=== PATIENT | female | born 1975 | race Caucasian/White ===

== ENCOUNTER 2017-03-08 00:16 | Inpatient (IN) | payer OTHER ==
[~2017-03-08] VITALS: Ht 152.4 cm; Wt 73.9 kg
[2017-03-08 00:17] VITALS: BP 119/70
[2017-03-08] MEDS: DEXT 5% /NACL 0.9% 1,000 ML IV SCH ×2 (01:00→04:43)
[2017-03-08] MEDS ORDERED: LIDOCAINE VISCOUS 2% 20 ML UDC PO ONE (01:30)
[2017-03-08] MEDS ORDERED: ALUMINUM HYD/MAG/SIMETHICONE 30 ML UDC PO ONE (01:30)
[2017-03-08] MEDS ORDERED: DICYCLOMINE HCL LIQUID 10 MG/5 ML UDC PO ONE (01:30)
[2017-03-08] MEDS ORDERED: NACL 0.9% 500 ML IV ONE (02:18)
[2017-03-08] MEDS ORDERED: ONDANSETRON 4 MG/2 ML VIAL IVP ONE (02:20)
[2017-03-08] MEDS ORDERED: KETOROLAC 30 MG/ML VIAL IVP ONE (02:20)
[2017-03-08 03:09] LABS: HEMATOCRIT 36.1 % (36-48); HEMOGLOBIN 11.5 g/dL (12.0-16.0); MEAN CORPUSCULAR HEMOGLOBIN 26 pg (27-31); MEAN CORPUSCULAR HGB CONC 32 g/dL (33-37); MEAN CORPUSCULAR VOLUME 80 fL (80-94); PLATELET COUNT (AUTO) 336 K/uL (140-450); RED BLOOD CELL COUNT(AUTO) 4.49 MIL/uL (4.20-5.40); RED CELL DISTRIBUTION WIDTH 15.6 % (11.6-13.7); WHITE BLOOD COUNT (AUTO) 10.3 K/uL (4.8-10.8)
[2017-03-08 03:15] LABS: LYMPHOCYTES % (MANUAL) 15 % (20-46); MONOCYTES % (MANUAL) 3 % (5-12)
[2017-03-08 03:17] LABS: ANION GAP 14.4 (8-16); CREATININE 0.7 mg/dL (0.6-1.3); POTASSIUM 3.4 mmol/L (3.5-5.1)
[2017-03-08 03:23] LABS: ALBUMIN 3.8 g/dL (3.4-5.0); TOTAL BILIRUBIN 1.2 mg/dL (0.0-1.0)
[2017-03-08] MEDS ORDERED: MORPHINE SULFATE 2 MG/ML SYR IVP ONE (03:35)
[2017-03-08] MEDS ORDERED: metroNIDAZOLE 500 MG/NS PREMIX 100 ML IV ONE (03:35)
[2017-03-08] MEDS ORDERED: MORPHINE SULFATE 4 MG/ML SYR IVP PRN (03:45)
[2017-03-08 04:25] VITALS: BP 133/73
[2017-03-08] MEDS ORDERED: PIPERACILLIN/TAZOBACTAM 3.375 GM VIAL IV ONE (04:34)
[2017-03-08] MEDS ORDERED: PIPERACILLIN/TAZOBACTAM 3.375 GM in DEXTROSE 5% 50 ML IV SCH (05:00)
[2017-03-08 08:00] VITALS: BP 112/78
[2017-03-08] MEDS ORDERED: POTASSIUM CHLORIDE 20% 40 MEQ/15 ML UDC PO SCH (09:12)
[2017-03-08 12:00] VITALS: BP 106/59
[2017-03-08] MEDS: PIPER/TAZO 3.375GM/D5W PREMIX 50 ML IV SCH ×2 (13:13→20:50)
[2017-03-09] VITALS: BP 105/67
[2017-03-09] MEDS ORDERED: INFLUENZA VIRUS VACCINE QUAD 0.5 ML SYR IMVAC SCH (04:00)
[2017-03-09] MEDS: PIPER/TAZO 3.375GM/D5W PREMIX 50 ML IV SCH ×3 (04:33→20:54)
[2017-03-09] MEDS: DEXT 5% /NACL 0.9% 1,000 ML IV SCH ×2 (06:25→18:03)
[2017-03-09 07:30] LABS: BASOPHILS # (AUTO) 0.1 K/uL (0.00-0.22); BASOPHILS % (AUTO) 1.7 % (0.0-2.0); EOSINOPHILS # (AUTO) 0.3 K/uL (0-0.4); EOSINOPHILS % (AUTO) 4.4 % (0.0-4.0); HEMATOCRIT 32.5 % (36-48); HEMOGLOBIN 10.5 g/dL (12.0-16.0); LYMPHOCYTES # (AUTO) 2.1 K/uL (2.5-16.5); LYMPHOCYTES % (AUTO) 27.7 % (20.5-51.1); MEAN CORPUSCULAR HEMOGLOBIN 26 pg (27-31); MEAN CORPUSCULAR HGB CONC 32 g/dL (33-37); MEAN CORPUSCULAR VOLUME 80 fL (80-94); MONOCYTES # (AUTO) 0.6 K/uL (0.8-1.0); MONOCYTES % (AUTO) 8.6 % (1.7-9.3); NEUTROPHILS # (AUTO) 4.4 K/uL (1.8-7.7); NEUTROPHILS % (AUTO) 57.6 % (42.2-75.2); PLATELET COUNT (AUTO) 288 K/uL (140-450); RED BLOOD CELL COUNT(AUTO) 4.08 MIL/uL (4.20-5.40); RED CELL DISTRIBUTION WIDTH 15.8 % (11.6-13.7); WHITE BLOOD COUNT (AUTO) 7.5 K/uL (4.8-10.8)
[2017-03-09 08:00] VITALS: BP 115/48
[2017-03-09 08:11] LABS: ANION GAP 13.2 (8-16); CARBON DIOXIDE 25.3 mmol/L (21-32); CREATININE 0.7 mg/dL (0.6-1.3); POTASSIUM 4.5 mmol/L (3.5-5.1)
[2017-03-09 08:16] LABS: MAGNESIUM 2.2 mg/dL (1.8-2.4); PHOSPHORUS 3.4 mg/dL (2.5-4.9); TOTAL BILIRUBIN 1.1 mg/dL (0.0-1.0)
[2017-03-09] MEDS: MORPHINE SULFATE 2 MG/ML SYR IVP PRN (11:36)
[2017-03-09] MEDS: ONDANSETRON 4 MG/2 ML VIAL IVP PRN ×2 (15:45→20:54)
[2017-03-09 16:00] VITALS: BP 106/64
[2017-03-09 20:00] VITALS: BP_SYST 107; BP_SYST 126; BP_DIAS 70; BP_DIAS 74
[2017-03-10] VITALS (12 sets, daily range): BP systolic 89–107; BP diastolic 55–71
[2017-03-10] MEDS ORDERED: INFLUENZA VIRUS VACCINE QUAD 0.5 ML SYR IMVAC PRN (04:00)
[2017-03-10] MEDS: PIPER/TAZO 3.375GM/D5W PREMIX 50 ML IV SCH ×3 (04:30→20:52)
[2017-03-10] MEDS ORDERED: HYDROmorphone PFS 2 MG/ML SYR ONE (08:46)
[2017-03-10] MEDS ORDERED: fentaNYL 0.05 MG/ML VIAL ONE (08:46)
[2017-03-10] MEDS ORDERED: BUPIVACAINE-MPF 0.25% 30 ML VIAL INJ ONE (08:53)
[2017-03-10] MEDS: DEXT 5% /NACL 0.9% 1,000 ML IV SCH ×2 (09:05→18:04)
[2017-03-10 09:10] LABS: BASOPHILS # (AUTO) 0.1 K/uL (0.00-0.22); BASOPHILS % (AUTO) 2.1 % (0.0-2.0); EOSINOPHILS # (AUTO) 0.3 K/uL (0-0.4); EOSINOPHILS % (AUTO) 3.9 % (0.0-4.0); HEMATOCRIT 33.9 % (36-48); HEMOGLOBIN 11.1 g/dL (12.0-16.0); LYMPHOCYTES # (AUTO) 1.8 K/uL (2.5-16.5); LYMPHOCYTES % (AUTO) 25.7 % (20.5-51.1); MEAN CORPUSCULAR HEMOGLOBIN 26 pg (27-31); MEAN CORPUSCULAR HGB CONC 33 g/dL (33-37); MEAN CORPUSCULAR VOLUME 79 fL (80-94); MONOCYTES # (AUTO) 0.6 K/uL (0.8-1.0); MONOCYTES % (AUTO) 8.9 % (1.7-9.3); NEUTROPHILS # (AUTO) 4.1 K/uL (1.8-7.7); NEUTROPHILS % (AUTO) 59.4 % (42.2-75.2); PLATELET COUNT (AUTO) 320 K/uL (140-450); RED CELL DISTRIBUTION WIDTH 15.4 % (11.6-13.7); WHITE BLOOD COUNT (AUTO) 6.9 K/uL (4.8-10.8)
[2017-03-10 09:52] LABS: ANION GAP 11.5 (8-16); CARBON DIOXIDE 27.5 mmol/L (21-32); CREATININE 0.7 mg/dL (0.6-1.3)
[2017-03-10] MEDS ORDERED: HYDROmorphone 1 MG/ML AMP IVP PRN (10:00)
[2017-03-10] MEDS ORDERED: ONDANSETRON 4 MG/2 ML VIAL IVP PRN (10:00)
[2017-03-10 10:01] LABS: ALBUMIN 3.2 g/dL (3.4-5.0); TOTAL BILIRUBIN 1.3 mg/dL (0.0-1.0)
[2017-03-10] MEDS: ONDANSETRON 4 MG/2 ML VIAL IVP PRN ×2 (17:03→21:04)
[2017-03-11] VITALS: BP 100/58
[2017-03-11] MEDS: PIPER/TAZO 3.375GM/D5W PREMIX 50 ML IV SCH ×2 (04:09→13:32)
[2017-03-11] MEDS: MORPHINE SULFATE 2 MG/ML SYR IVP PRN ×2 (04:13→08:27)
[2017-03-11 08:00] VITALS: BP 103/68
[2017-03-11] MEDS: DEXT 5% /NACL 0.9% 1,000 ML IV SCH (08:19)
[2017-03-11] MEDS: ONDANSETRON 4 MG/2 ML VIAL IVP PRN (08:27)
[2017-03-11 16:00] VITALS: BP 101/58
[2017-03-11 20:00] VITALS: BP 100/62
[2017-03-11] MEDS: ONDANSETRON 4 MG TAB PO PRN (20:41)
[2017-03-11] MEDS: HYDROcodone/APAP 5/325 MG 1 TAB TAB PO PRN (20:46)
[2017-03-12] VITALS: BP 99/66
[2017-03-12] MEDS ORDERED: ACET-2869 PO (01:49)
[2017-03-12] MEDS ORDERED: ONDA4TAB PO (01:50)
[2017-03-12 01:52] VITALS: BP 99/66
[2017-03-12] MEDS: HYDROcodone/APAP 5/325 MG 1 TAB TAB PO PRN ×2 (03:49→09:29)
[2017-03-12] MEDS: ONDANSETRON 4 MG TAB PO PRN ×2 (03:49→09:29)
[2017-03-12 07:22] LABS: BASOPHILS # (AUTO) 0.2 K/uL (0.00-0.22); BASOPHILS % (AUTO) 1.7 % (0.0-2.0); EOSINOPHILS # (AUTO) 0.8 K/uL (0-0.4); EOSINOPHILS % (AUTO) 8.4 % (0.0-4.0); HEMATOCRIT 31.4 % (36-48); HEMOGLOBIN 10.2 g/dL (12.0-16.0); MEAN CORPUSCULAR HEMOGLOBIN 26 pg (27-31); MEAN CORPUSCULAR HGB CONC 32 g/dL (33-37); MEAN CORPUSCULAR VOLUME 81 fL (80-94); MONOCYTES # (AUTO) 0.9 K/uL (0.8-1.0); NEUTROPHILS # (AUTO) 5.7 K/uL (1.8-7.7); NEUTROPHILS % (AUTO) 59.9 % (42.2-75.2); PLATELET COUNT (AUTO) 316 K/uL (140-450); RED BLOOD CELL COUNT(AUTO) 3.88 MIL/uL (4.20-5.40); RED CELL DISTRIBUTION WIDTH 15.6 % (11.6-13.7); WHITE BLOOD COUNT (AUTO) 9.6 K/uL (4.8-10.8)
[2017-03-12 07:47] LABS: ALBUMIN 2.8 g/dL (3.4-5.0); ANION GAP 12.4 (8-16); CARBON DIOXIDE 26.3 mmol/L (21-32); CREATININE 0.6 mg/dL (0.6-1.3); POTASSIUM 3.7 mmol/L (3.5-5.1); TOTAL BILIRUBIN 0.8 mg/dL (0.0-1.0)
[2017-03-12 08:00] VITALS: BP 102/65
== END 2017-03-12 11:05 | disposition home or self-care (01) | DRG 263 ==
LOC: MED 00:16 → MTU 03:44
PROVIDERS: ADMIT Hospitalist; ATTEND Hospitalist
PROC: BF101ZZ Fluoroscopy of Bile Ducts using Low Osmolar Contrast (ICD-10-PCS; 2017-03-10)
PROC: 0FT44ZZ Resection of Gallbladder, Percutaneous Endoscopic Approach (ICD-10-PCS; principal; 2017-03-10 12:00)
PROC: 3E0234Z Introduction of Serum, Toxoid and Vaccine into Muscle, Percutaneous Approach (ICD-10-PCS; 2017-03-11)
DX: K80.12 Calculus of gallbladder with acute and chronic cholecystitis without obstruction (principal); E66.9 Obesity, unspecified; R94.5 Abnormal results of liver function studies; Z90.721 Acquired absence of ovaries, unilateral; Z68.31 Body mass index [BMI] 31.0-31.9, adult; Z23 Encounter for immunization
CPT/HCPCS: 36415; 74150; 76705; 78445; 80053; 82374; 83690; 83735; 84100; 84703; 85025; 86886; 86900; 86901; 87081; 90658; 96361; 96365; 96375; 99285; C1887; J1170; J1885; J2270; J2405; J2543; J3010; J3490; J7030; J7042; J7060; Q0092; Q0162

== ENCOUNTER 2019-12-03 00:31 | Emergency (ER) | payer OTHER ==
[~2019-12-03] VITALS: Ht 152.4 cm; Wt 78.0 kg
[~2019-12-03 00:31] MED LIST: HYDR-5122 PO; ONDA4TAB PO
[2019-12-03 00:33] VITALS: BP 121/50
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
--- NOTE | 2019-12-03 00:51 | NUR ---
CMS INTACT. NO LOSS OF BLADDER OR BOWEL FUNCTION. DENIES ANY NUMBNESS OR TINGLING.
[2019-12-03] MEDS ORDERED: ACETAMINOPHEN 325 MG TAB PO ONE (01:00)
--- NOTE | 2019-12-03 01:33 | NUR ---
XR AT BEDSIDE.
[2019-12-03] MEDS ORDERED: ACETAMINOPHEN EXTRA STRENGTH 500 MG TAB PO ONE (01:40)
--- NOTE | 2019-12-03 02:21 | NUR ---
PT RETURNED BACK FROM CT VIA W/C.
[2019-12-03 03:40] VITALS: BP 121/50
--- NOTE | 2019-12-03 03:40 | NUR ---
Patient discharged with v/s stable. Written and verbal after care instructions given and explained. Patient alert, oriented and verbalized understanding of instructions. Ambulatory with steady gait. All questions addressed prior to discharge. ID band removed. Patient advised to follow up with PMD. Rx of TORADOL given. Patient educated on indication of medication including possible reaction and side effects. Opportunity to ask questions provided and answered.
== END 2019-12-03 03:40 | disposition home or self-care (01) ==
LOC: MED 00:31
DX: M79.632 Pain in left forearm (principal); M79.631 Pain in right forearm; M54.2 Cervicalgia; Z79.899 Other long term (current) drug therapy; V89.2XXA Person injured in unspecified motor-vehicle accident, traffic, initial encounter; Y93.89 Activity, other specified; Y92.89 Other specified places as the place of occurrence of the external cause; Y99.8 Other external cause status
CPT/HCPCS: 70450; 71250; 72125; 73090; 73130; 74176; 81025; 99285; Q0092

== ENCOUNTER 2020-02-03 14:22 | Emergency (ER) | payer OTHER, SELFPAY ==
[~2020-02-03] VITALS: Ht 152.4 cm; Wt 72.6 kg
[2020-02-03 14:42] VITALS: BP 113/70
--- NOTE | 2020-02-03 14:55 | NUR ---
DR. CAST ASSESSING PT IN TENT
--- NOTE | 2020-02-03 15:25 | NUR ---
NOVEL SWAB COLLECTED AND TAKEN TO LAB
[2020-02-03 15:35] VITALS: BP 113/70
--- NOTE | 2020-02-03 15:35 | NUR ---
Patient discharged with v/s stable. Written and verbal after care instructions given and explained. Patient verbalized understanding. Ambulatory with steady gait. All questions addressed prior to discharge. Advised to follow up with PMD.
== END 2020-02-03 15:35 | disposition home or self-care (01) ==
LOC: MED 14:22
DX: U07.1 COVID-19 (principal); R07.9 Chest pain, unspecified; R05 Cough; R06.02 Shortness of breath
CPT/HCPCS: 99283; U0003